=== PATIENT | male | born 1950 | race Caucasian/White ===

== ENCOUNTER 2016-12-24 09:28 | Emergency (ER) | payer OTHER ==
[~2016-12-24] VITALS: Ht 180.3 cm; Wt 111.1 kg
[2016-12-24] MEDS ORDERED: CLONI1TA PO (09:37)
[2016-12-24] MEDS ORDERED: ATOR1TAB19 (09:37)
[2016-12-24] MEDS ORDERED: LOSARTAN-HCTZ (09:37)
[2016-12-24] MEDS ORDERED: BYST10TA2 PO (09:43)
[2016-12-24] MEDS ORDERED: INFL10VL IV (09:43)
[2016-12-24] MEDS ORDERED: GABA-283 PO (09:43)
[2016-12-24] MEDS ORDERED: MONT10TA2 PO (09:43)
[2016-12-24] MEDS ORDERED: LOVA1CAP17 PO (09:43)
[2016-12-24] MEDS ORDERED: AMLO5TAB2 PO (09:43)
[2016-12-24] MEDS ORDERED: AMAR1TAB PO (09:43)
[2016-12-24] MEDS ORDERED: ASPI81CH PO (09:43)
[2016-12-24] MEDS ORDERED: PRAM1TAB3 PO (09:43)
[2016-12-24] MEDS ORDERED: METF500T4 PO (09:43)
[2016-12-24] MEDS ORDERED: MULT1CHW39 PO (09:43)
[2016-12-24 10:26] LABS: BASO % 0.3 % (0.0-1.0); EOS # 0.1 K/mm3 (0.0-0.50); EOS % 0.8 % (0.0-3.0); LARGE UNSTAINED CELL # 0.1 K/mm3 (0.0-0.4); LARGE UNSTAINED CELL % 0.7 % (0.0-4.0); LYMPH # 1.1 K/mm3 (1.5-4.5); LYMPH % 12.8 % (24.0-44.0); MEAN CORPUSCULAR HEMOGLOBIN 32.5 pg (27.0-33.0); MEAN CORPUSCULAR HGB CONC 36.3 g/dl (32.0-36.5); MEAN CORPUSCULAR VOLUME 89.7 fl (80.0-96.0); MONO # 0.3 K/mm3 (0.0-0.8); MONO % 3.3 % (0.0-5.0); NEUTROPHILS % 82.2 % (36.0-66.0); PLATELET COUNT, AUTOMATED 187 k/mm3 (150-450); RED CELL DISTRIBUTION WIDTH 12.9 % (11.5-14.5); WHITE BLOOD COUNT 8.6 K/mm3 (4.0-10.0)
[2016-12-24 13:43] LABS: CALCIUM LEVEL 8.9 MG/DL (8.8-10.2); CREATININE FOR GFR 1.4 MG/DL (0.70-1.30); GLOMERULAR FILTRATION RATE 54.1 (>49); MAGNESIUM LEVEL 2.2 MG/DL (1.8-2.4); POTASSIUM SERUM 3.7 MEQ/L (3.5-5.1)
[2016-12-24 18:05] VITALS: BP 128/78
--- NOTE | 2016-12-25 08:20 | ECGEPIP ---
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
--- NOTE | 2016-12-25 08:34 | ECGEPIP ---
Stationary ECG Study [facility] - ED Test Date: 2016-12-24 Pat Name: JOLLY COTTER Department: Room: - Gender: M [employer] Broker: andreas : 1950 Requested By: Shauna Roman Order Number: [id number] Reading MD: Shauna Roman Measurements Intervals [place] Rate: 52 P: 25 AR: 205 QRS: -2 QRSD: 110 T: 23 QT: 463 QTc: 432 Interpretive Statements SINUS BRADYCARDIA NONSPECIFIC T-WAVE ABNORMALITY SIMILAR 12/24/16 9:52 Electronically Signed On 12-25-2016 8:34:19 EDT by Shauna Roman
== END 2016-12-24 18:06 | disposition home or self-care (01) ==
LOC: EDBD 09:28 → M ED 10:43
DX: R55 Syncope and collapse (principal); I10 Essential (primary) hypertension; E11.9 Type 2 diabetes mellitus without complications; R00.1 Bradycardia, unspecified; R94.31 Abnormal electrocardiogram [ECG] [EKG]; Z87.891 Personal history of nicotine dependence; Z79.84 Long term (current) use of oral hypoglycemic drugs; Z79.899 Other long term (current) drug therapy; Z79.82 Long term (current) use of aspirin

== ENCOUNTER → 2022-05-06 | Outpatient (REF) | payer MEDICARE, OTHER ==
[~2022-05-06] MED LIST: AMAR1TAB PO; AMLO1TAB24 PO; ASPI81CH49 PO; ATOR1TAB19; BYST10TA2 PO; CLONI1TA PO; GABA-283 PO; INFL10VL IV; LOSARTAN-HCTZ; LOVA1CAP17 PO; METF-838 PO; MONT10TA97 PO; MULT200T7 PO; PRAM1TAB7 PO
[2022-05-06 14:38] LABS: PERCENT SATURATION 14.5 % (19.7-50.0)
== END ==
LOC: M LAB REF 12:16
PROVIDERS: ATTEND Internal Medicine
DX: E83.110 Hereditary hemochromatosis (principal)

== ENCOUNTER → 2022-05-14 | Outpatient (CLI) | payer MEDICARE, OTHER | LOC: M WUC 09:52 | PROVIDERS: ATTEND Internal Medicine | DX: R06.02 Shortness of breath (principal) ==

== ENCOUNTER → 2022-07-18 | Outpatient (CLI) | payer MEDICARE, OTHER ==
[~2022-07-18] MED LIST changes: +FERR32TA PO; +IRBE300T7 PO; +JARD1TAB3 PO; +TORS10TA3 PO
== END ==
LOC: M LABSMTC 11:31
PROVIDERS: ATTEND Anesthesiology
DX: Z20.828 Contact with and (suspected) exposure to other viral communicable diseases (principal); Z11.59 Encounter for screening for other viral diseases

== ENCOUNTER 2022-07-22 06:39 | Day surgery (SDC) | payer MEDICARE, OTHER ==
[~2022-07-22] VITALS: Ht 180.3 cm; Wt 113.4 kg
[~2022-07-22 06:39] MED LIST changes: +NS 1,000 ML IV ONE
[2022-07-22] MEDS ORDERED: propofoL 200 MG/20 ML VIAL As Ordered ONE (06:57)
[2022-07-22] MEDS ORDERED: LIDOCAINE 2% 100MG/5ML SDV (FOR ANES.) As Ordered ONE (06:57)
[2022-07-22 08:26] VITALS: BP 124/57
== END 2022-07-22 08:38 | disposition home or self-care (01) ==
LOC: M OPP 06:39
PROVIDERS: ATTEND Surgery
DX: Z12.11 Encounter for screening for malignant neoplasm of colon (principal); D12.5 Benign neoplasm of sigmoid colon; K57.30 Diverticulosis of large intestine without perforation or abscess without bleeding; Z99.89 Dependence on other enabling machines and devices; Z79.02 Long term (current) use of antithrombotics/antiplatelets; Z79.82 Long term (current) use of aspirin; Z79.84 Long term (current) use of oral hypoglycemic drugs; Z79.899 Other long term (current) drug therapy; I10 Essential (primary) hypertension; E78.00 Pure hypercholesterolemia, unspecified; E11.9 Type 2 diabetes mellitus without complications; L40.50 Arthropathic psoriasis, unspecified; G47.30 Sleep apnea, unspecified

== ENCOUNTER → 2023-02-01 | Outpatient (REF) | payer MEDICARE, OTHER ==
[~2023-02-01] MED LIST changes: -NS 1,000 ML IV ONE
[2023-02-01 13:51] LABS: PERCENT SATURATION 20.2 % (19.7-50.0)
[2023-02-01 13:53] LABS: FERRITIN 57.5 NG/ML (10.5-307.3)
== END ==
LOC: M LAB REF 12:30
PROVIDERS: ATTEND Internal Medicine
DX: E83.110 Hereditary hemochromatosis (principal)

== ENCOUNTER → 2023-03-31 | Outpatient (CLI) | payer MEDICARE, OTHER | LOC: M RAD 08:03 | PROVIDERS: ATTEND Surgery Vascular Surgery | DX: I70.90 Unspecified atherosclerosis (principal) ==

== ENCOUNTER → 2023-12-19 | Outpatient (REF) | payer MEDICARE, OTHER ==
[~2023-12-19] MED LIST changes: -ATOR1TAB19; +ATOR1TAB19 PO; -GABA-283 PO; +GABA-284 PO; +GLIM1TAB4 PO; +IRBE300T25 PO; -IRBE300T7 PO
== END ==
LOC: M LAB REF 16:28
PROVIDERS: ATTEND Internal Medicine
DX: G25.81 Restless legs syndrome (principal)

== ENCOUNTER 2023-12-29 10:46 | Day surgery (SDC) | payer MEDICARE, OTHER ==
[~2023-12-29] VITALS: Ht 180.3 cm; Wt 108.9 kg
[2023-12-29] MEDS: NS 1,000 ML IV ONE (11:31)
[2023-12-29] MEDS ORDERED: propofoL 200 MG/20 ML VIAL As Ordered ONE (12:15)
[2023-12-29] MEDS ORDERED: LIDOCAINE 2% 100MG/5ML SDV (FOR ANES.) As Ordered ONE (12:15)
[2023-12-29 14:09] VITALS: BP 168/88; TEMP 97.2; O2SAT 98
== END 2023-12-29 14:14 | disposition home or self-care (01) ==
LOC: M OPP 10:46
PROVIDERS: ATTEND Surgery
DX: Z86.010 Personal history of colon polyps (principal); Z80.0 Family history of malignant neoplasm of digestive organs; K63.5 Polyp of colon; K57.30 Diverticulosis of large intestine without perforation or abscess without bleeding; Z87.891 Personal history of nicotine dependence; E11.9 Type 2 diabetes mellitus without complications; I10 Essential (primary) hypertension; G47.30 Sleep apnea, unspecified; Z99.89 Dependence on other enabling machines and devices; Z79.02 Long term (current) use of antithrombotics/antiplatelets; Z79.82 Long term (current) use of aspirin; Z79.84 Long term (current) use of oral hypoglycemic drugs; Z79.891 Long term (current) use of opiate analgesic; Z79.899 Other long term (current) drug therapy

== ENCOUNTER → 2024-01-19 | Outpatient (CLI) | payer MEDICARE, OTHER ==
[~2024-01-19] MED LIST changes: -GLIM1TAB4 PO; +GLIM1TAB84 PO
== END ==
LOC: M SLEEP 20:00
PROVIDERS: ATTEND Nurse Practitioner Adult Health
DX: G47.33 Obstructive sleep apnea (adult) (pediatric) (principal)

== ENCOUNTER → 2024-03-08 | Outpatient (CLI) | payer MEDICARE, OTHER | LOC: M RAD 13:24 | PROVIDERS: ATTEND Internal Medicine | DX: M54.2 Cervicalgia (principal) ==

== ENCOUNTER → 2024-04-24 | Outpatient (CLI) | payer MEDICARE, OTHER | LOC: M RAD 08:48 | PROVIDERS: ATTEND Physician Assistant | DX: I71.43 Infrarenal abdominal aortic aneurysm, without rupture (principal) ==

== ENCOUNTER → 2024-07-26 | Outpatient (CLI) | payer MEDICARE, OTHER ==
[~2024-07-26] MED LIST changes: -BYST10TA2 PO; +BYST1TAB3 PO; +CEPH500C PO; -MULT200T7 PO; +MULT200T9 PO; +NYST100085 TOP; +TRAM50TA2 PO
== END ==
LOC: M WUC 11:17
PROVIDERS: ATTEND Student in an Organized Health Care Education/Training Program
DX: M19.011 Primary osteoarthritis, right shoulder (principal); M19.031 Primary osteoarthritis, right wrist

== ENCOUNTER 2024-07-28 12:02 | Emergency (ER) | payer MEDICARE, OTHER ==
[~2024-07-28] VITALS: Ht 180.3 cm; Wt 109.2 kg
[~2024-07-28 12:02] MED LIST changes: -CEPH500C PO; -NYST100085 TOP; -TRAM50TA2 PO
[2024-07-28] MEDS: ACETAMINOPHEN 325 MG TAB PO ONE (14:14)
[2024-07-28] MEDS: traMADol 50 MG TAB PO ONE (14:16)
[2024-07-28 15:17] VITALS: BP 145/68; TEMP 99; O2SAT 93
[2024-07-28] MEDS ORDERED: CEPH500C PO (15:18)
[2024-07-28] MEDS ORDERED: TRAM50TA2 PO (15:18)
[2024-07-28] MEDS ORDERED: NYST100085 TOP (15:18)
== END 2024-07-28 15:27 | disposition home or self-care (01) ==
LOC: M ED 12:02
DX: S43.401A Unspecified sprain of right shoulder joint, initial encounter (principal); S63.92XA Sprain of unspecified part of left wrist and hand, initial encounter; S63.91XA Sprain of unspecified part of right wrist and hand, initial encounter; N47.1 Phimosis; W08.XXXA Fall from other furniture, initial encounter; E11.9 Type 2 diabetes mellitus without complications; I10 Essential (primary) hypertension; E78.5 Hyperlipidemia, unspecified; G47.30 Sleep apnea, unspecified; Z79.82 Long term (current) use of aspirin; Z79.02 Long term (current) use of antithrombotics/antiplatelets; Z79.4 Long term (current) use of insulin; Z79.899 Other long term (current) drug therapy; Y92.009 Unspecified place in unspecified non-institutional (private) residence as the place of occurrence of the external cause; Y93.89 Activity, other specified; Y99.9 Unspecified external cause status

== ENCOUNTER → 2024-10-09 | Outpatient (CLI) | payer MEDICARE, OTHER ==
[~2024-10-09] MED LIST changes: +CEPH500C PO; +NYST100085 TOP; +TRAM50TA2 PO
== END ==
LOC: M WUC 09:26
PROVIDERS: ATTEND Physician Assistant
DX: Z01.818 Encounter for other preprocedural examination (principal)

== ENCOUNTER 2024-10-11 11:29 | Emergency (ER) | payer MEDICARE, OTHER ==
[~2024-10-11] VITALS: Ht 180.3 cm; Wt 106.5 kg
[2024-10-11 12:36] LABS: BASO # 0.1 10^3/uL (0.0-0.2); BASO % 0.6 % (0.0-1.0); EOS # 0.2 10^3/uL (0.0-0.5); EOS % 1.9 % (0.0-3.0); HEMATOCRIT 32.5 % (42.0-52.0); HEMOGLOBIN 10.2 g/dl (13.5-17.5); LYMPH # 1.6 10^3/uL (1.5-5.0); LYMPH % 14.9 % (24.0-44.0); MEAN CORPUSCULAR HEMOGLOBIN 28.3 pg (27.0-33.0); MEAN CORPUSCULAR HGB CONC 31.4 g/dl (32.0-36.5); MEAN CORPUSCULAR VOLUME 90.3 fl (80.0-96.0); MONO # 0.6 10^3/uL (0.0-0.8); MONO % 5.4 % (2.0-8.0); NEUTROPHILS # 7.9 10^3/uL (1.5-8.5); NEUTROPHILS % 76.5 % (36.0-66.0); PLATELET COUNT, AUTOMATED 519 10^3/uL (150-450); WHITE BLOOD COUNT 10.4 10^3/uL (4.0-10.0)
[2024-10-11 12:55] LABS: ALBUMIN 2.5 G/DL (3.2-5.2); ALKALINE PHOSPHATASE 104 U/L (40-129); ALT/SGPT 23 U/L (7.0-40); AST/SGOT 16 U/L (<34); BILIRUBIN,DIRECT 0.1 MG/DL (<0.4); BILIRUBIN,TOTAL 0.3 MG/DL (0.3-1.2); BLOOD UREA NITROGEN 15 MG/DL (9-23); CALCIUM LEVEL 8.9 MG/DL (8.3-10.6); CARBON DIOXIDE LEVEL 29 MMOL/L (20-31); CHLORIDE LEVEL 106 MMOL/L (98-107); GLOMERULAR FILTRATION RATE > 60.0 (>42); GLUCOSE, FASTING 184 MG/DL (74-106); MAGNESIUM LEVEL 2.2 MG/DL (1.8-2.4); POTASSIUM SERUM 4.7 MMOL/L (3.5-5.1); SODIUM LEVEL 140 MMOL/L (136-145); TOTAL PROTEIN 6.5 G/DL (5.7-8.2)
[2024-10-11 12:57] LABS: THYROID STIMULATING HORMONE 2.038 uIU/ML (0.55-4.78); THYROXINE (T4) 6.3 UG/DL (4.5-10.9)
[2024-10-11 13:05] LABS: VENOUS BASE EXCESS 3.8 (-2.0-2.0); VENOUS HCO3 28.5 MMOL/L (23.0-27.0); VENOUS PARTIAL PRESSURE CO2 43.3 mmHg (38.0-50.0); VENOUS PARTIAL PRESSURE O2 103.8 mmHg (30.0-50.0); VENOUS PH 7.436 UNITS (7.330-7.430); VENOUS STANDARD HCO3 27.9 MMOL/L; VENOUS TOTAL CO2 29.8 MMOL/L (24.0-28.0)
[2024-10-11] MEDS: FUROSEMIDE 40MG/4ML VIAL IV ONE (14:19)
[2024-10-11] MEDS ORDERED: GLIM2TAB29 PO (14:36)
[2024-10-11] MEDS ORDERED: GABA-1171 PO ×2 (14:36)
[2024-10-11] MEDS ORDERED: ASPI81TA26 PO (14:36)
[2024-10-11] MEDS ORDERED: HOME MED LIST COMPLETE! XX SCH (14:40)
[2024-10-11 15:40] VITALS: BP 158/71; TEMP 97.2; O2SAT 100
== END 2024-10-11 15:52 | disposition home or self-care (01) ==
LOC: M ED 11:29 → EDBD 11:29 → M ED 15:52
DX: R22.43 Localized swelling, mass and lump, lower limb, bilateral (principal); E11.9 Type 2 diabetes mellitus without complications; E78.5 Hyperlipidemia, unspecified; I10 Essential (primary) hypertension; M54.50 Low back pain, unspecified; Z79.82 Long term (current) use of aspirin; Z79.02 Long term (current) use of antithrombotics/antiplatelets; Z79.899 Other long term (current) drug therapy
CPT/HCPCS: 71045; 80048; 80076; 82803; 83735; 83880; 84436; 84443; 85025; 87486; 87581; 87633; 87798; 93005; 93041; 94760; 96374; 99285; J1940

== ENCOUNTER 2024-10-15 11:50 | Day surgery (SDC) | payer MEDICARE, OTHER ==
[~2024-10-15] VITALS: Ht 180.3 cm; Wt 106.4 kg
[~2024-10-15 11:50] MED LIST changes: +ASPI81TA26 PO; +GABA-1171 PO; +GLIM2TAB29 PO; +LIDOCAINE 2% 100MG/5ML SDV (FOR ANES.) As Ordered ONE; +ONDANSETRON 4MG 2ML VIAL As Ordered ONE; +propofoL 200 MG/20 ML VIAL As Ordered ONE
[2024-10-15] MEDS ORDERED: ceFAZolin 2 GM/D5W 50 ML IV BAG As Ordered ONE (12:21)
[2024-10-15] MEDS ORDERED: fentaNYL 100 MCG/2 ML INJECTION As Ordered ONE (12:35)
[2024-10-15] MEDS ORDERED: NS (Normal Saline) 0.9% 1,000 ML IV SCH ×2 (13:00→14:45)
[2024-10-15] MEDS: INSULIN LISPRO (NovoLOG) PER UNIT SC PRN (13:01)
[2024-10-15] MEDS: ceFAZolin SOD 2 GM in IV 1 EA IV ONE (13:23)
[2024-10-15] MEDS ORDERED: ACETAMINOPHEN 1000MG/100ML IV BAG As Ordered ONE (13:25)
[2024-10-15] MEDS: BACITRACIN OINTMENT 30GM TUBE As Ordered ONE (14:10)
[2024-10-15] MEDS ORDERED: fentaNYL 100 MCG/2 ML INJECTION IV PRN (14:45)
[2024-10-15] MEDS ORDERED: HYDROMORPHONE HCL 0.5 MG/ 0.5 ML SYRINGE IV PRN (14:45)
[2024-10-15] MEDS ORDERED: ONDANSETRON 4MG 2ML VIAL IV PRN (14:45)
[2024-10-15] MEDS ORDERED: oxyCODONE 5MG TAB PO PRN (14:45)
[2024-10-15] MEDS ORDERED: OXYC1TAB23 PO (14:50)
[2024-10-15 17:01] VITALS: BP 132/68; TEMP 97.4; O2SAT 98
== END 2024-10-15 17:03 | disposition home or self-care (01) ==
LOC: M SDC 11:50
PROVIDERS: ATTEND Urology
DX: N47.1 Phimosis (principal)
CPT/HCPCS: 54161; 88304; J0131; J0690; J1815; J2405; J3010

== ENCOUNTER → 2024-10-30 | Outpatient (REF) | payer MEDICARE, OTHER ==
[~2024-10-30] MED LIST changes: -LIDOCAINE 2% 100MG/5ML SDV (FOR ANES.) As Ordered ONE; -ONDANSETRON 4MG 2ML VIAL As Ordered ONE; +OXYC1TAB23 PO; -propofoL 200 MG/20 ML VIAL As Ordered ONE
[2024-10-30 13:26] LABS: IRON (FE) 23 UG/DL (65-175); PERCENT SATURATION 9.5 % (19.7-50.0); TOTAL IRON BINDING CAPACITY 242 UG/DL (250-425)
[2024-10-30 13:27] LABS: FERRITIN 214.4 NG/ML (10.5-307.3)
[2024-10-30 13:40] LABS: HEPATITIS B SURFACE ANTIGEN NEGATIVE (NEGATIVE)
[2024-10-30 14:44] LABS: HEPATITIS B CORE ANTIBODY IGM NEGATIVE (NEGATIVE); HEPATITIS C VIRUS ABY INDEX 0.17 INDEX (<0.8)
[2024-11-01 13:07] LABS: ANA SCREEN, IFA NEGATIVE (NEGATIVE)
== END ==
LOC: M LAB REF 12:25
PROVIDERS: ATTEND Internal Medicine
DX: R53.83 Other fatigue (principal); R14.0 Abdominal distension (gaseous)

== ENCOUNTER → 2024-11-09 | Outpatient (REF) | payer MEDICARE, OTHER | LOC: M LAB REF 12:16 | PROVIDERS: ATTEND Internal Medicine | DX: R06.02 Shortness of breath (principal) ==

== ENCOUNTER → 2024-11-30 | Outpatient (CLI) | payer MEDICARE, OTHER | LOC: M RAD 08:54 | PROVIDERS: ATTEND Internal Medicine | DX: R18.8 Other ascites (principal) ==

== ENCOUNTER → 2025-01-16 | Outpatient (CLI) | payer MEDICARE, OTHER | LOC: M RAD 15:04 | PROVIDERS: ATTEND Internal Medicine | DX: I73.9 Peripheral vascular disease, unspecified (principal) ==

== ENCOUNTER → 2025-04-25 | Outpatient (CLI) | payer MEDICARE, OTHER ==
[~2025-04-25] MED LIST changes: +FURO40TA2 PO; +HUMI40IN2; +IRBE150T27 PO; +METO25TA PO; +NADO20TA38 PO; +OMEG-28 PO; +PROP40TA62 PO; +SPIR50TA4 PO; +SULF500T41 PO; +TRUL0.5I
== END ==
LOC: M RAD 08:34
PROVIDERS: ATTEND Surgery Vascular Surgery
DX: I71.40 Abdominal aortic aneurysm, without rupture, unspecified (principal)

== ENCOUNTER 2025-05-09 09:43 | Day surgery (SDC) | payer MEDICARE, OTHER ==
[~2025-05-09] VITALS: Ht 180.3 cm; Wt 102.2 kg
[2025-05-09] MEDS ORDERED: LIDOCAINE 2% INJ 100 MG/5 ML SYRINGE As Ordered ONE (11:55)
[2025-05-09 12:03] VITALS: TEMP 98
[2025-05-09 12:20] VITALS: BP 121/56; O2SAT 96
== END 2025-05-09 12:33 | disposition home or self-care (01) ==
LOC: M OPP 09:43
PROVIDERS: ATTEND Surgery
DX: K44.9 Diaphragmatic hernia without obstruction or gangrene (principal); K29.70 Gastritis, unspecified, without bleeding; K29.80 Duodenitis without bleeding; R93.3 Abnormal findings on diagnostic imaging of other parts of digestive tract; G47.30 Sleep apnea, unspecified; Z88.8 Allergy status to other drugs, medicaments and biological substances; Z79.82 Long term (current) use of aspirin; Z79.84 Long term (current) use of oral hypoglycemic drugs; Z79.85 Long-term (current) use of injectable non-insulin antidiabetic drugs; Z79.899 Other long term (current) drug therapy

== ENCOUNTER → 2025-07-10 | Outpatient (REF) | payer MEDICARE, OTHER ==
[2025-07-10 18:29] LABS: IRON (FE) 44.0 UG/DL (65-175); PERCENT SATURATION 15.3 % (19.7-50.0)
[2025-07-10 18:30] LABS: VITAMIN B12 LEVEL 472.0 PG/ML (211-911)
== END ==
LOC: M LAB REF 17:25
PROVIDERS: ATTEND Internal Medicine
DX: D50.9 Iron deficiency anemia, unspecified (principal)